=== PATIENT | female | born 1990 | race African-American/Black ===

== ENCOUNTER 2017-12-04 21:27 | Emergency (ER) | payer OTHER ==
[~2017-12-04 21:27] MED LIST: AUGMENTIN 875-1 EACH PO; DARVOCET-N 1001 EACH PO; GLUCOPHAGE1000 MG PO; KEFLEX500 MG PO; NORCO 5-325 TA1 EACH PO
[2017-12-04 22:55] VITALS: BP 111/69
== END 2017-12-04 23:15 | disposition left against medical advice (07) ==
LOC: ER 21:27
DX: Z53.21 Procedure and treatment not carried out due to patient leaving prior to being seen by health care provider (principal)